=== PATIENT | male | born 1980 | race Caucasian/White ===

== ENCOUNTER → 2021-03-25 | Outpatient (CLI) | payer BC ==
[~2021-03-25] VITALS: Ht 175.3 cm; Wt 83.9 kg
[~2021-03-25] MED LIST: IBUPROFEN600 MG PO; ZANAFLEX4 M1 PO
== END ==
LOC: EROP 11:25
DX: U07.1 COVID-19 (principal); Z23 Encounter for immunization
CPT/HCPCS: 96365